=== PATIENT | female | born 1995 | race Caucasian/White ===

== ENCOUNTER 2016-12-01 08:07 | Emergency (ER) | payer BC ==
[2016-12-01 08:30] VITALS: BP 126/73
--- NOTE | 2016-12-01 09:18 | UC ---
Respiratory Complaint HPI - HPI Summary HPI Summary: The patient comes in today for: 1. Cough, chills (no temperature taken), sore throat, chest pain, Onset: Last night. Palliative/provocative: Mucinex taken and it helped. Quality: "Uncomfortable feeling." Region: Chest-retrosternal. Severity: 3/10 Time: Comes and goes. Associated symptoms: "A lot of my friends have the flu at this time." Cough production: "Majority of time" yellow/green. Chest pain: She denies pain, and states that it is just "uncomfortable." It is retrosternal, and it is "very faint" and nothing makes it better or worse. Loss of appetite. Rhinitis: Green, yellow. Sinus pressure: Present. * - History of Current Complaint Chief Complaint: UCRespiratory Stated Complaint: FLU SXS Time Seen by Provider: 12/01/16 08:54 Hx Obtained From: Patient Hx Last Menstrual Period: 10/20/16 (three month control) - Allergies/Home Medications Allergies/Adverse Reactions: Allergies Allergy/AdvReac Type Severity Reaction Status Date / Time Cefdinir [From Omnicef] Allergy Unknown Verified 12/01/16 08:25 Reaction Details Sodium Benzoate Allergy Unknown Verified 12/01/16 08:25 [From Omnicef] Reaction Details Home Medications: Home Medications Acetaminophen [Acetaminophen Extra Stren] 500 mg PO ONCE 12/01/16 [History Confirmed 12/01/16] Guaifenesin/Pseudo 600/60(NF) [Mucinex D 600/60 (NF)] 1 tab PO ONCE 12/01/16 [ History Confirmed 12/01/16] Levonorgestrel-Ethinyl Estradi [Camrese] 1 tab PO DAILY 12/01/16 [History Confirmed 12/01/16] PMH/Surg Hx/FS Hx/Imm Hx Previously Healthy: No Endocrine History Of: Denies: Diabetes, Thyroid Disease, Hyperthyroidism, Hypothyroidism, Dyslipidemia Cardiovascular History Of: Denies: Cardiac Disorders, Hypertension, Pacemaker/ICD, Myocardial Infarction , Congestive Heart Failure, Atrial Fibrillation, Deep Vein Thrombosis, Bleeding Disorders Respiratory History Of: Denies: COPD, Asthma, Bronchitis, Pneumonia, Pulmonary Embolism GI/ History Of: Denies: Gastroesophageal Reflux, Ulcer, Gastrointestinal Bleed, Gall Bladder Disease, Kidney Stones, Diverticulitis, Renal Disease, Urosepsis Neurological History Of: Denies: TIA, CVA, Dementia, Seizures, Migraine Psychological History Of: Denies: Anxiety, Depression, Bipolar Disorder, Schizophrenia, Post Traumatic Stress Disorder Cancer History Of: Denies: Lung Cancer, Colorectal Cancer, Breast Cancer, Prostate Cancer, Cervical Cancer Other History Of: Negative For: HIV, Hepatitis B, Hepatitis C, Anticoagulant Therapy - Surgical History Surgical History: None - Family History Known Family History: Positive: Hypertension Negative: Cardiac Disease - Social History Occupation: Student Alcohol Use: Occasionally Substance Use Type: None Smoking Status (MU): Never Smoked Tobacco - Immunization History Most Recent Influenza Vaccination: Not the Season Review of Systems Constitutional: Negative Skin: Negative Eyes: Negative ENT: Nasal Discharge Respiratory: Cough Cardiovascular: Chest Pain Gastrointestinal: Abdominal Pain - She has been having this worked up from providers at home. Genitourinary: Negative All Other Systems Reviewed And Are Negative: Yes Physical Exam Triage Information Reviewed: Yes Appearance: Well-Appearing - She is animated and smiling at times., No Pain Distress, Well-Nourished Vital Signs: Initial Vital Signs Temp 99.8 F 12/01/16 08:19 Pulse 106 12/01/16 08:19 Resp 16 12/01/16 08:19 BP 126/73 12/01/16 08:19 Pulse Ox 99 12/01/16 08:19 Vital Signs Reviewed: Yes Eyes: Positive: Conjunctiva Clear. Negative: Discharge ENT: Positive: Hearing grossly normal. Negative: Pharyngeal erythema, Nasal congestion, Nasal drainage, TM bulging, TM dull, TM red, Tonsillar swelling, Tonsillar exudate Dental: Negative: Gross Decay/Caries @, Dental Fracture @ Neck: Positive: Supple, Nontender, No Lymphadenopathy. Negative: Nuchal Rigidity Respiratory: Positive: Chest non-tender, Lungs clear, No respiratory distress, No accessory muscle use. Negative: Crackles, Wheezing Cardiovascular: Positive: RRR, No Murmur Abdomen Description: Positive: Nontender, No Organomegaly, Soft. Negative: Distended, Guarding, McBurney's Point Tenderness, Peritoneal Signs Musculoskeletal: Positive: Strength Intact, ROM Intact Neurological: Positive: Alert, Muscle Tone Normal Psychological: Positive: Age Appropriate Behavior, Consolable Skin: Negative: rashes, breakdown UC Diagnostic Evaluation - Laboratory O2 Sat by Pulse Oximetry: 99 Diagnostic Studies Comment: Influenza: A is (+) and B is (-) Respiratory Course/Dx - Differential Dx/Diagnosis Differential Diagnosis/HQI/PQRI: Bronchitis, Laryngitis, Sinusitis Provider Diagnoses: Sinusitis. INfluenza Discharge - Discharge Plan Condition: Stable Disposition: AGAINST MEDICAL ADVICE Patient Education Materials: Influenza (ED), Sinusitis (ED) Forms: *School Release Additional Instructions: IF you are not going to the ER for further evaluation of your chest pain, please at least reconsider if you get worse. For your sinus infection, and influenza, please see your primary care provider or student health center later this week to see how well you are doing. If you get worse, please be seen sooner.
== END 2016-12-01 09:48 | disposition left against medical advice (07) ==
LOC: UCCORT 08:07
DX: J11.1 Influenza due to unidentified influenza virus with other respiratory manifestations (principal); J32.9 Chronic sinusitis, unspecified; Z88.1 Allergy status to other antibiotic agents
CPT/HCPCS: 87502; 99202; G0463

== ENCOUNTER 2017-12-24 07:52 | Emergency (ER) | payer BC ==
[2017-12-24 08:47] VITALS: BP 127/68
--- NOTE | 2017-12-24 10:07 | UC ---
Throat Pain/Nasal Ogrdon HPI - HPI Summary HPI Summary: 22 year old with head cold and sinus pressure for about a week or so and developed nausea with sore throat yesterday. has had recurrent strep in the past year and gone to multiple ENT. - History of Current Complaint Chief Complaint: UCRespiratory Stated Complaint: SORE THROAT, CONGESTION, HEADACHE Time Seen by Provider: 12/24/17 09:54 Hx Obtained From: Patient Hx Last Menstrual Period: 10/2017 Onset/Duration: Gradual Onset Pain Intensity: 4 - Allergies/Home Medications Allergies/Adverse Reactions: Allergies Allergy/AdvReac Type Severity Reaction Status Date / Time cefdinir [From Omnicef] Allergy Unknown Verified 12/24/17 08:35 Reaction Details Home Medications: Home Medications Acetaminophen/Diphenhydramine [Tylenol Pm Ex-Strength Caplet] 2 each PO ONCE PRN 12/24/17 [History Confirmed 12/24/17] PMH/Surg Hx/FS Hx/Imm Hx Previously Healthy: Yes Other History Of: Negative For: HIV, Hepatitis B, Hepatitis C, Anticoagulant Therapy - Surgical History Surgical History: None - Family History Known Family History: Positive: Hypertension Negative: Cardiac Disease - Social History Occupation: Student Alcohol Use: Occasionally Substance Use Type: None Smoking Status (MU): Never Smoked Tobacco - Immunization History Most Recent Influenza Vaccination: Not the 2015/2016 Season Review of Systems Constitutional: Fatigue ENT: Sore Throat, Nasal Discharge, Sinus Congestion, Sinus Pain/Tenderness Respiratory: Cough Is Patient Immunocompromised?: No All Other Systems Reviewed And Are Negative: Yes Physical Exam Triage Information Reviewed: Yes Appearance: Well-Appearing, No Pain Distress, Well-Nourished Vital Signs: Initial Vital Signs Temp 98.9 F 12/24/17 08:40 Pulse 71 12/24/17 08:40 BP 127/68 12/24/17 08:40 Pulse Ox 100 12/24/17 08:40 Vital Signs Reviewed: Yes Eye Exam: Normal ENT Exam: Normal ENT: Positive: Pharyngeal erythema, Nasal congestion, TMs normal, Sinus tenderness. Negative: Tonsillar swelling, Tonsillar exudate Dental Exam: Normal Neck exam: Normal Neck: Positive: 1 Respiratory Exam: Normal Cardiovascular Exam: Normal Musculoskeletal Exam: Normal Neurological Exam: Normal Psychological Exam: Normal Skin Exam: Normal Throat Pain/Nasal Course/Dx - Course Course Of Treatment: appears viral at this time and per patient she already using mucinex D and flonase -- she will start netti pot and if sx persist or worsen in 3 days then at that time it is day 10 or more and can start augmentin and she is aware of all SE in c diff - Differential Dx/Diagnosis Differential Diagnosis/HQI/PQRI: Pharyngitis, Sinusitis, Tonsillitis, URI Provider Diagnoses: 1) URI. 2) Sinusitis. 3) pharyngitis Discharge - Discharge Plan Condition: Good Disposition: HOME Prescriptions: Amoxicillin/Clavulanate TAB* [Augmentin TAB 875*] 875 mg PO BID #20 tab Patient Education Materials: Upper Respiratory Infection (ED), Sinusitis (ED) Forms: *School Release Referrals: Non Staff,Doctor [Primary Care Provider] - Additional Instructions: As we discussed your strep test was negative. You appear to have a viral infection . If your sinus pressure persists or worsens in the next 3 days then then at that time you may start the antibiotic. As we also discussed there are numerous side effects of antibiotics as well. Feel better soon
== END 2017-12-24 10:17 | disposition home or self-care (01) ==
LOC: UCCORT 07:52
DX: J06.9 Acute upper respiratory infection, unspecified (principal); J32.9 Chronic sinusitis, unspecified; J02.9 Acute pharyngitis, unspecified
CPT/HCPCS: 87651; 99212; G0463